=== PATIENT | female | born 1970 | race Caucasian/White ===

== ENCOUNTER 2019-09-29 18:30 | Emergency (ER) | payer MEDICAID ==
[~2019-09-29] VITALS: Ht 165.1 cm; Wt 109.1 kg
[2019-09-29] MEDS ORDERED: acetaminophen 325mg tablet PO ONE (19:25)
[2019-09-29 20:23] VITALS: BP 165/92
== END 2019-09-29 20:27 | disposition home or self-care (01) ==
LOC: ER 18:31
DX: R50.9 Fever, unspecified (principal); Z20.828 Contact with and (suspected) exposure to other viral communicable diseases; R53.81 Other malaise
CPT/HCPCS: 99282

== ENCOUNTER 2019-10-05 16:04 | Emergency (ER) | payer MEDICAID | END 2019-10-05 17:44 | disposition home or self-care (01) | LOC: ER 16:04 | DX: Z20.828 Contact with and (suspected) exposure to other viral communicable diseases (principal); F17.200 Nicotine dependence, unspecified, uncomplicated; F12.90 Cannabis use, unspecified, uncomplicated; Z72.89 Other problems related to lifestyle | CPT/HCPCS: 87635; 99283; C9803 ==

== ENCOUNTER 2020-12-17 09:27 | Emergency (ER) | payer MEDICAID ==
[~2020-12-17] VITALS: Ht 167.6 cm; Wt 125.0 kg
[2020-12-17] MEDS ORDERED: orphenadrine citrate 60mg/2ml inj. IM ONE (10:05)
[2020-12-17] MEDS ORDERED: DIAZ5TAB22 PO (11:50)
[2020-12-17 11:54] VITALS: BP 204/104
--- NOTE | 2020-12-17 12:02 | NUR ---
Alfredo RAMIREZ aware of BP, recommends pt follow up her PMD
== END 2020-12-17 12:06 | disposition home or self-care (01) ==
LOC: ER 09:28
DX: G44.209 Tension-type headache, unspecified, not intractable (principal); F12.10 Cannabis abuse, uncomplicated; F17.210 Nicotine dependence, cigarettes, uncomplicated
CPT/HCPCS: 70450; 96372; 99284; J2360; 70460

== ENCOUNTER 2022-07-16 17:31 | Emergency (ER) | payer MEDICAID ==
[~2022-07-16] VITALS: Ht 167.6 cm; Wt 118.2 kg
[2022-07-16 17:49] VITALS: BP 133/84
[2022-07-16] MEDS ORDERED: TETanus/Pertussis (Acell)/Diphther VAC/PF (Tdap-Adult) 0.5ml syringe IMVAC ONE ×2 (18:35→18:40)
[2022-07-16] MEDS ORDERED: LIDOcaine 1% W/epiNEPHrine 1:200,000 10ml vial IJ ONE (18:35)
[2022-07-16] MEDS ORDERED: bacitracin 15gm ointment TP ONE ×2 (18:35→18:40)
[2022-07-16] MEDS ORDERED: LIDOcaine 1% W/epiNEPHrine 1:100,000 20ml vial IJ ONE (18:40)
[2022-07-16] MEDS ORDERED: amox tr/potassium clavulanate 875/125mg TAB PO STA (19:37)
[2022-07-16] MEDS ORDERED: AMOX-117 PO (19:51)
== END 2022-07-16 20:01 | disposition home or self-care (01) ==
LOC: VAS 17:31
DX: S51.012A Laceration without foreign body of left elbow, initial encounter (principal); W54.0XXA Bitten by dog, initial encounter; Y93.89 Activity, other specified; Y92.89 Other specified places as the place of occurrence of the external cause; Y99.8 Other external cause status
CPT/HCPCS: 12002; 73080; 90471; 90715; 99283; J3490; A6449

== ENCOUNTER 2022-08-01 14:28 | Emergency (ER) | payer MEDICAID ==
[~2022-08-01] VITALS: Ht 165.1 cm; Wt 118.2 kg
[2022-08-01] MEDS ORDERED: LIDOcaine 1% W/epiNEPHrine 1:100,000 20ml vial SQ ONE (16:35)
[2022-08-01] MEDS ORDERED: propofol 10mg/ml 20ml vial IV ONE ×2 (17:05→19:25)
[2022-08-01] MEDS ORDERED: piperacillin/tazo 3.375gm/50ml 50 ML IV ONE (17:05)
[2022-08-01] MEDS ORDERED: levoFLOXACIN-Levaquin 500mg/D5 100 ML IV ONE (17:05)
[2022-08-01] MEDS ORDERED: fentaNYL/PF 50MCG/1 ML 2ML syringe IV ONE (17:05)
--- NOTE | 2022-08-01 18:24 | NUR ---
pt predded for mod sedation, assumed care form erica baird
[2022-08-01] MEDS ORDERED: propofol inj 20 ML IV ONE (18:35)
--- NOTE | 2022-08-01 19:00 | NUR ---
Pts GEOVANNI increased to level 2 r/t moderate sedation and I&D needed for her wounds.
[2022-08-01] MEDS ORDERED: METR-159 PO (19:11)
[2022-08-01] MEDS ORDERED: LEVO-65 PO (19:11)
[2022-08-01] MEDS ORDERED: OXYC-145 PO (19:11)
[2022-08-01 20:35] VITALS: BP 142/98
== END 2022-08-01 20:37 | disposition home or self-care (01) ==
LOC: ER 14:28
DX: S41.112D Laceration without foreign body of left upper arm, subsequent encounter (principal); S30.1XXD Contusion of abdominal wall, subsequent encounter; L03.114 Cellulitis of left upper limb; L03.311 Cellulitis of abdominal wall; F12.90 Cannabis use, unspecified, uncomplicated; W54.0XXD Bitten by dog, subsequent encounter
CPT/HCPCS: 10140; 87070; 87075; 96365; 96368; 99152; 99153; 99285; A6223; A6266; J1956; J2543; J2704; J3010; J7030; 94760; A4620; A6212; A6213; A6253; A6258; A6446; A6449

== ENCOUNTER 2023-08-11 10:57 | Emergency (ER) | payer MEDICAID ==
[~2023-08-11] VITALS: Ht 167.6 cm; Wt 122.7 kg
[~2023-08-11 10:57] MED LIST: CEPH-585 PO; SACU1TAB7 PO; SULF1TAB45 PO
[2023-08-11 11:01] VITALS: BP 190/85; PULSE 110; RESP 20; TEMP 99.3; O2SAT 96
== END 2023-08-11 14:22 | disposition left against medical advice (07) ==
LOC: ER 10:57
DX: L03.114 Cellulitis of left upper limb (principal); Z53.21 Procedure and treatment not carried out due to patient leaving prior to being seen by health care provider

== ENCOUNTER 2024-05-10 13:08 | Outpatient (CLI) | payer MEDICAID ==
[~2024-05-10 13:08] MED LIST changes: -SULF1TAB45 PO
== END 2024-05-10 23:59 | disposition home or self-care (01) ==
LOC: CARD DIAG 13:08
PROVIDERS: ATTEND Student in an Organized Health Care Education/Training Program
DX: I08.8 Other rheumatic multiple valve diseases (principal); M25.572 Pain in left ankle and joints of left foot
CPT/HCPCS: 93306

== ENCOUNTER 2024-11-04 13:47 | Emergency (ER) | payer MEDICAID ==
[~2024-11-04] VITALS: Ht 167.6 cm; Wt 120.5 kg
[2024-11-04 13:59] VITALS: BP 219/122; PULSE 89; RESP 18; O2SAT 97
--- NOTE | 2024-11-04 14:17 | Physician Documentation ---
History of Present Illness ~ Chief Complaint: Hypertension Stated Complaint: HIGH BLOOD PRESSURE Time Seen by MD: 16:34 Primary Medical Doctor: YULIET HOANG [facility] This 54-year-old female with a history of hypertension presents with concerns for progressively increasing blood pressure today, patient reports that 2 hours after taking her prescribed blood pressure medication she took her blood pressure of 157 systolic, patient repeats that she retook her blood pressure and it ema to 180 systolic and on presentation to the emergency department her blood pressure is 219 systolic. Patient reports that she feels very anxious about her blood pressure increasing though reports no chest pain or shortness of breath. Additional note by Ryley Gaming, DO: I took over the care of this patient from previous physician. I reviewed any previous notes available, obtain my own history, review of systems and physical examination was performed by myself. Patient confirms the story above. Continues to deny any chest pain or difficulty breathing. Denies any right upper quadrant pain, denies any flank pain. Denies any vision or hearing changes, denies any focal neurologic deficits when inquired in plain Chinese. Denies use of alcohol or illicit substances. Smokes. Medication Reconciliation Allergies: Coded Allergies: No Known Allergies (Unverified , 09/21/22) Scheduled Cephalexin*Monohydrate* (Keflex*), 2 CAP PO BID Sacubitril/Valsartan (Entresto 49 mg-51 mg Tablet), 1 TAB PO BID, (Reported) Past Medical History Past Medical History: No Pertinent History Past Surgical History: no surgical history Alcohol Use: Sober Drug Use: marijuana, methamphetamine Lives In: Home Review of Systems ROS As stated above in the HPI, otherwise all systems are reviewed and negative. Physical Exam Vital Signs: Temperature: 98.5, Source: Oral, Heart Rate: 89, Respiratory Rate: 18, BP: 219/122, Pulse Oximetry: 97, Weight: 120.450 Oxygen Flow Rate: 0 Physical Exam VITALS: Reviewed and as above. GENERAL: Alert, nontoxic appearing, no apparent distress. HEENT: RESPIRATORY: No increased work of breathing, no respiratory distress, speaking in full clear sentences CHEST: CV: BACK: GI: MUSCULOSKELETAL: SKIN: NEURO: PSYCH: Progress Results/Orders Results/Orders Vital Signs 11/04/24 13:59 Temp 98.5 Pulse 89 Resp 18 B/P (MAP) 219/122 Pulse Ox 97 O2 Flow Rate 0 Laboratory Tests Test 11/04/24 14:08 11/04/24 16:06 White Blood Count 6.8 Red Blood Count 5.03 Hemoglobin 16.0 Hematocrit 47.4 H Mean Corpuscular Volume 94.2 Mean Corpuscular Hemoglobin 31.8 H Mean Corpuscular Hemoglobin Concent 33.8 Red Cell Distribution Width 14.2 Platelet Count 223 Mean Platelet Volume 8.4 Neutrophils (%) (Auto) 55.9 Lymphocytes (%) (Auto) 34.5 Monocytes (%) (Auto) 5.4 Eosinophils (%) (Auto) 3.3 Basophils (%) (Auto) 0.9 Neutrophils # (Auto) 3.8 Lymphocytes # (Auto) 2.3 Monocytes # (Auto) 0.4 Eosinophils # (Auto) 0.2 Basophils # (Auto) 0.1 CBC Comment Sodium Level 137 Potassium Level 3.9 Chloride Level 104 Carbon Dioxide Level 26.4 Anion Gap 7 L Blood Urea Nitrogen 9 Creatinine 1.02 H Estimated GFR/1.73 m2 56 BUN/Creatinine Ratio 8.8 L Glucose Level 115 H Calcium Level 8.3 L Total Bilirubin 0.3 Aspartate Amino Transf (AST/SGOT) 21 Alanine Aminotransferase (ALT/SGPT) 28 Alkaline Phosphatase 91 Troponin I High Sensitivity 14 14 Total Protein 6.6 Albumin 2.8 L Globulin 3.8 Albumin/Globulin Ratio 0.7 L Chemistry Comments Troponin I High Sens Percent Delta 0 Troponin I Hi Sens Absolute Change 0 EKG/XRAY/CT/US/VASC/MRI EKG : Additional Comment EKG was obtained and interpreted by myself shows sinus rhythm of 84, normal DE interval, borderline QRS at 111, no QT prolongation, normal axis, no STEMI. Nonspecific T-wave abnormalities noted. Medical Decision Making Findings MSE performed in triage and patient returned to ED lobby by nursing staff to await available ED room, EKG, labs, and imaging ordered to be performed while patient rates in lobby. It is reassuring patient reports no symptoms to suggest end-organ damage making hypertensive emergency less likely. Additional note by Ryley Gaming DO: I took over the care of this patient from previous physician. I reviewed any previous notes available, obtain my own history, review of systems and physical examination was performed by myself. Facility Status: ED Holds, E process The plan was discussed with the patient, who demonstrates clear understanding of the plan and is in agreement with the plan unless otherwise noted in the chart. All questions have been answered, all concerns were addressed unless otherwise documented. I was available throughout their ED stay for frequent reassessment and questions. Differential Diagnoses (considered and possible or likely): [Hypertension with a elevated blood pressure reading, hypertensive urgency, hypertensive emergency with a end-organ damage] ??Differential Diagnoses (considered and unlikely, not requiring evaluation currently): [No evidence of lateralizing signs to suspect a stroke, no worst headache of life to suspect an intracranial bleed] MDM Data Please see [facility] for the following: Independent Historians and external Records Review. Historian: [Patient] Independent Historians: ?[Record review] Medication Management: [Reviewed medication list] Social History and determinants: [Reviewed] Please see the body of the note for the following: Any independent interpretations of ECG, imaging studies. All vitals signs/haemodynamics, ordered tests were independently reviewed and interpreted by myself. Nursing triage complaint and vitals reviewed, additional nursing notes were reviewed as available and I agree unless otherwise noted or documented in contradiction in the chart Vital Signs: Independently reviewed Labs: Independently interpreted Imaging: Independently interpreted Old Medical Records: Independently reviewed, see [facility] for relevant summary and information Pulse Oximetry: [96%] interpreted as [normal on room air] by me [Unhairer: [Regular Rate, Regular rhythm, no ectopy, NSR] reviewed and interpreted by me] Additionally notably showing: [Hemodynamically stable. Unremarkable laboratory workup. No evidence of end-organ damage.] Tests considered but not ordered include: [Imaging does not appear to be necessary] Social Determinants of Health Impact: Patient was evaluated in [facility] [place] to healthcare due to below par ratio of patient to medical providers. [] Comorbid Conditions Impacting Present Evaluation and Care/Treatment: [Hypertension, congestive heart failure] Management Discussions with other Healthcare Providers: [None] Treatment and Disposition Medication Management (Given or considered): []. See EMR for details Consideration for Hospitalization/Escalation/Deescalation of Care: Admission for observation has been considered, [however the patient is able to tolerate p.o., their symptoms are controlled, they are able to rely on oral medications, and their chief complaint/diagnosis can be managed on outpatient basis.] ?ED Course:?[No clinical deterioration.] ?Shared decision making:?[Patient is hemodynamically stable for discharge home with follow with their primary care provider. [ ] Specific and cautious return precautions provided and discussed with full understanding. Any incidental findings were also discussed and follow up recommendations given. [] All questions answered. Patient/family were able to verbalize back return precautions. Patient/family agree to plan. Copies of imaging and laboratory studies were provided.] Code status:?FULL Please see the full Electronic Medical Record for full details of nursing documentation, medications list, other records of complete past medical history and conditions, vital signs, laboratory studies, and any radiologic study interpretations by radiologists. Portions of this note were completed using [facility] dictation software and as a result there may exist minor errors in spelling. I have reviewed elements of past family and social history and agree as included in note. Departure Disposition: 01 HOME / SELF CARE / HOMELESS Impression: Primary Impression: Elevated blood pressure reading with diagnosis of hypertension Condition: Stable Discharge Instructions: Hypertension, Adult Referrals: NO PRIMARY CARE PROVIDER (PCP) Prescriptions Hydrochlorothiazide (Hydrochlorothiazide) 12.5 Mg Tablet 1 TAB PO DAILY for 30 Days, #30 TAB 0 Refills Prov: RYLEY GAMING DO 11/04/24 Education Educated: Patient Educated regarding: diagnosis, treatment, prognosis, need for follow up Signature Scribe Signature: No scribe Attestation: This note accurately reflects clinical decisions, work performed by myself, DO BREONNA Piña [facility] Nov 04, 2024 14:17 RYLEY GAMING DO Nov 04, 2024 14:57
--- NOTE | 2024-11-04 14:17 | ELECTROCARDIOGRAPH REPORT ---
[facility] Test Date: 2024-11-04 Test Time: 14:15:15 Pat Name: JORGE ALBERTO SILVEIRA Department: WILL Room: Gender: F Calculus Tutor: : 1970 Requested By: MURPHY RAVI Order Number: [id number] Reading MD: Dr. OLAMIDE Claire Measurements Intervals [place] Rate: 84 P: 42 NM: 147 QRS: 25 QRSD: 111 T: 99 QT: 377 QTc: 446 Interpretive Statements Sinus rhythm Probable left atrial enlargement Nonspecific T abnormalities, lateral leads Baseline wander in lead(s) V4,V5 Electronically Signed On 11-04-2024 17:59:[address] OLAMIDE Claire Please click the below link to view image of tracing.
[2024-11-04 14:19] LABS: MEAN PLATELET VOLUME 8.4 FL (7.4-10.4); RED CELL DISTRIBUTION WIDTH 14.2 % (11.5-14.5)
[2024-11-04 14:33] LABS: CREATININE 1.02 MG/DL (0.40-0.90); TOTAL CARBON DIOXIDE 26.4 MMOL/L (24-32); eCRCL 58 ML/MIN; eGFR 56 ML/MIN
--- NOTE | 2024-11-04 14:54 | RADIOLOGY REPORT ---
CHEST RADIOGRAPH Indication: HTN Technique: Single frontal view of the chest was obtained Comparison: None FINDINGS: Lines and Tubes: None Lungs: No focal consolidation. Pleura: No effusion. No pneumothorax. Cardiomediastinal contours: Unremarkable Bones: No acute osseous abnormality. IMPRESSION: No acute cardiopulmonary disease.
[2024-11-04] MEDS ORDERED: HYDR12.55 PO (16:48)
[2024-11-04 16:53] VITALS: TEMP 98.5
== END 2024-11-04 16:58 | disposition home or self-care (01) ==
LOC: ER 13:47
DX: F17.200 Nicotine dependence, unspecified, uncomplicated (principal); I10 Essential (primary) hypertension; F12.90 Cannabis use, unspecified, uncomplicated; F15.90 Other stimulant use, unspecified, uncomplicated; Z79.899 Other long term (current) drug therapy
CPT/HCPCS: 36415; 71045; 80053; 84484; 85025; 93005; 99285